=== PATIENT | female | born 1985 | race African-American/Black ===

== ENCOUNTER 2024-05-11 13:40 | Emergency (ER) | payer OTHER ==
[~2024-05-11] VITALS: Ht 162.6 cm; Wt 68.0 kg
[2024-05-11 13:49] VITALS: TEMP 98.4; O2SAT 100
[2024-05-11] MEDS ORDERED: KETOROLAC 30MG/ML VIAL IM STA (15:19)
[2024-05-11] MEDS ORDERED: ACETAMINOPHEN WITH CODEINE 300/30MG TABLET PO STA (15:19)
[2024-05-11] MEDS ORDERED: CYCL5TAB MT (17:59)
[2024-05-11] MEDS ORDERED: NAPR-681 PO (17:59)
[2024-05-11] MEDS ORDERED: DICL75TA5 MT (18:17)
[2024-05-11 19:09] VITALS: BP 117/77; PULSE 100; RESP 16
[2024-05-11] MEDS: KETOROLAC 30MG/ML VIAL IM NR (19:09)
[2024-05-11] MEDS: ACETAMINOPHEN WITH CODEINE 300/30MG TABLET PO NR (19:09)
== END 2024-05-11 19:15 | disposition home or self-care (01) ==
LOC: ER 13:40
DX: S00.93XA Contusion of unspecified part of head, initial encounter (principal); S93.401A Sprain of unspecified ligament of right ankle, initial encounter; M54.31 Sciatica, right side; M47.9 Spondylosis, unspecified; R51.9 Headache, unspecified; W18.30XA Fall on same level, unspecified, initial encounter; Y93.89 Activity, other specified; Y92.89 Other specified places as the place of occurrence of the external cause; Y99.8 Other external cause status
CPT/HCPCS: 99285; 70450; 73502; 72100; 73610; 96372; 70480; J1885